=== PATIENT | female | born 1980 | race Caucasian/White ===

== ENCOUNTER → 2019-07-17 | Outpatient (CLI) | payer MEDICAID, OTHER ==
--- NOTE | 2019-07-17 16:19 | REP ---
REASON: Pain. PRIORS: None. No history of trauma. FINDINGS: Smoothly marginated well corticated subcentimeter-sized ossific/calcific densities are seen distal to the medial malleolus. No acute fracture or destructive osseous lesion. The mortise is intact. There is a small retrocalcaneal heel spur. IMPRESSION: No acute abnormality. Chronic changes seen with either accessory ossicles or old healed avulsion fractures off the medial malleolus. There is a retrocalcaneal heel spur. Electronically Signed by Alverto Mcgovern DO 07/17/2019 04:32 P
== END ==
LOC: M LRY 15:38
PROVIDERS: ATTEND Physician Assistant
DX: M77.32 Calcaneal spur, left foot (principal); M25.572 Pain in left ankle and joints of left foot